=== PATIENT | female | born 2000 | race Caucasian/White ===

== ENCOUNTER → 2022-05-15 | Outpatient (REF) | payer OTHER, MEDICAID, BC | LOC: M LAB REF 16:21 | PROVIDERS: ATTEND Pediatrics | DX: E55.9 Vitamin D deficiency, unspecified (principal) ==

== ENCOUNTER → 2023-06-14 | Outpatient (REF) | payer OTHER, MEDICAID, BC ==
[2023-06-14 14:19] LABS: Trichomonas vaginalis (AMP) NOT DETECTED (NEGATIVE)
[2023-06-14 14:42] LABS: GC DNA AMPLIFICATION NEGATIVE (NEGATIVE)
== END ==
LOC: M SFHCWAGY 12:52
PROVIDERS: ATTEND Nurse Practitioner Family
DX: Z11.3 Encounter for screening for infections with a predominantly sexual mode of transmission (principal); Z12.4 Encounter for screening for malignant neoplasm of cervix

== ENCOUNTER → 2024-07-04 | Outpatient (REF) | payer OTHER ==
[2024-07-04 21:16] LABS: GC DNA AMPLIFICATION NEGATIVE (NEGATIVE)
== END ==
LOC: M SFHCWAGY 17:14
PROVIDERS: ATTEND Nurse Practitioner Family
DX: N94.10 Unspecified dyspareunia (principal)